=== PATIENT | male | born 2005 | race Hispanic/Latino ===

== ENCOUNTER 2024-06-12 15:28 | Emergency (ER) | payer OTHER ==
[~2024-06-12] VITALS: Ht 177.8 cm; Wt 80.7 kg
[2024-06-12 15:43] VITALS: BP 145/91; PULSE 71; RESP 20; TEMP 98.6
--- NOTE | 2024-06-12 15:45 | ERN ---
General Chief Complaint: Body Fluid Exposure Stated Complaint: BLOOD IN EYE (OTHER PERSONS) Time Seen by MD: 15:40 Time Seen by Midlevel: 15:40 Source: patient History of Present Illness Initial Comments Patient is a 18-year-old male with no significant past medical history presenting to the emergency department after he had a blood exposure from an IV to his right eye. This occurred at approximately 2:20 p.m. today. The patient does admit to wearing contact lenses and was wearing them at the time of the exposure. He did not remove his contact lenses after the exposure. He does report washing his eye for approximately 5-6 minutes. Patient was now presenting to the ER for further evaluation. Patient has no complaints at this time ROS Dictation CONSTITUTIONAL: Negative except for HPI HEAD/FACE: Negative except for HPI EENT: Negative except for HPI RESPIRATORY: Negative except for HPI GASTROINTESTINAL/ABDOMINAL: Negative except for HPI GENITOURINARY: Negative except for HPI MUSCULOSKELETAL: Negative except for HPI INTEGUMENTARY: Negative except for HPI NEUROLOGICAL/PSYCH: Negative except for HPI HEMATOLOGIC/LYMPHATIC: Negative except for HPI All Systems Negative, Except as noted above. 13 point review of systems assessed and all negative except for above. Physical Exam Physical Exam Dictation Vital Signs reviewed General Appearance: Alert, oriented x 3, no acute distress, well developed, nourished. Head and Face: non-traumatic. Eyes: PERRL, pink conjunctivas, eyelid no trauma, anterior chamber with arcus senilis. Ears: Pinnas intact and no signs of trauma or erythema ear canals clear and no discharge TM no erythema Nose: No discharge, no bleeding. Oropharynx: Mouth normal, tongue pink, pharynx clear,no erythema, tonsils no exudates, no abscesses noted, mucous membrane moist Neck: Supple, non-tender, no thyromegaly, no masses, no JVD, no bruits Breast:Deferred Chest:No tenderness, no crepitus, no paradoxical movement, no retractions Lungs:Clear, well-ventilated, symmetric, no rales, no wheezing, no rhonchi, no stridor, good breath sounds bilaterally Heart: Regular rate, regular rhythm, no murmur, no gallops Vascular: no peripheral edema, Abdomen: Soft, positive bowel sounds, nondistended, no guarding, nontender, no rebound, no masses no hepatomegaly, no splenomegaly, no Nguyen's sign, no hernias. Rectal: Deferred Genital: Deferred Neurological: Normal speech, motor function intact, sensory function intact Musculoskeletal: Neck nontender, full range of motion, back nontender, full range of motion, Extremities: nontender, full range of motion Skin: Color pink, dry, no turgor, no rash, no lacerations, no abrasions, no contusions. Lymphatic: Deferred MDM MDM: Patient is a 18-year-old male with no significant past medical history presenting to the emergency department after he had a blood exposure from an IV to his right eye. This occurred at approximately 2:20 p.m. today. The patient does admit to wearing contact lenses and was wearing them at the time of the exposure. He did not remove his contact lenses after the exposure. He does report washing his eye for approximately 5-6 minutes. Patient was now presenting to the ER for further evaluation. Patient has no complaints at this time. On physical examination the patient is in no acute distress. His ENT examination is unremarkable. His eye examination is unremarkable. The patient will be sent upstairs for further testing. Patient was advised to remove and toss his contact lenses at this time. Differential diagnosis: Exposure to body fluids, conjunctivitis, I evaluation, general wellness examination There are no social concerns with this patient. Prescription drug management Prescriptions will include: None Medical management and examination interpretation discussions were had by me with other qualified healthcare professionals as indicated for the patient's care. DX & DISP Disposition: Discharge Departure Impression: Primary Impression: Employee exposure to body fluids Condition: Stable Referrals: SELF,REFERRAL (PCP) Time of Disposition: 15:45 I have reviewed the case, and I agree with, Diagnosis and Plan I performed the substantive portion of the visit. I have reviewed and personally made and approve the management plan that is documented in the note by myself or the EARLINE. I acknowledge for responsibility for the patient's management plan. YARELIS MALLOY Jun 12, 2024 15:45
[2024-06-12 16:45] LABS: HIV 1&2 ANTIBODY Non-Reactive (Negative)
[2024-06-12 16:46] LABS: HIV-1 p24 Antigen Non-Reactive (Negative)
[2024-06-13 04:50] LABS: HEPATITIS B CORE AB TOTAL Non-Reactive (Nonreactive); HEPATITIS B SURFACE ANTIBODY Negative (Reactive); HEPATITIS C ANTIBODY Non-Reactive (Nonreactive)
== END 2024-06-12 17:47 | disposition left against medical advice (07) ==
LOC: EDH 15:28
DX: Z77.21 Contact with and (suspected) exposure to potentially hazardous body fluids (principal)
CPT/HCPCS: 36415; 86701; 86704; 86706; 86803; 87390; 99283

== ENCOUNTER 2024-09-27 17:00 | Emergency (ER) | payer OTHER ==
[~2024-09-27] VITALS: Ht 177.8 cm; Wt 77.1 kg
--- NOTE | 2024-09-27 17:12 | ERN ---
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 No other injuries reported. Allergies: Coded Allergies: No Known Drug Allergies (Unverified Allergy, Unknown, 06/12/24) Past Medical History Past Medical History: No Pertinent History Surgical History: None RN Note Reviewed/Agreed w/PFSH: Yes Review of System Dictation Constitutional: Negative for fever,chills, and weight loss Eyes: Negative for injury, pain,redness, and discharge ENT: Negative for injury,pain or swelling Cardiovascular: Negative for chest pain, palpitations, and edema Respiratory: Negative for shortness of breath, cough, and wheezing, Abdomen/GI: Negative for abdominal pain, nausea, vomiting, diarrhea, and constipation Back: Negative for injury and pain : Negative for injury, bleeding and discharge MS/Extremity: Positive for left foot injury Skin: Negative for rash, and discoloration Neuro: Negative for headache, weakness, numbness, tingling, and seizure Psych: Negative for suicide ideation, homicidal ideation, and hallucinations Initial Vital Sign VS Vital Signs Date Time Temp Pulse Resp B/P (MAP) Pulse Ox O2 Delivery O2 Flow Rate FiO2 09/27/24 17:01 97.5 79 18 141/76 99 Room Air 0 09/27/24 17:06 21 Physical Exam Dictation Vital Signs reviewed General Appearance: Alert, oriented x 3, no acute distress, well developed, nourished. Head and Face: non-traumatic. Eyes: PERRL, pink conjunctivas, eyelid no trauma, anterior chamber with arcus senilis. Ears: Pinnas intact and no signs of trauma or erythema ear canals clear and no discharge TM no erythema Nose: No discharge, no bleeding. Oropharynx: Mouth normal, tongue pink. pharynx clear,no erythema, tonsils no exudates, no abscesses noted, mucous membrane moist Neck: Supple, non-tender, no thyromegaly, no masses, no JVD, no bruits Breast:Deferred Chest:No tenderness, no crepitus, no paradoxical movement, no retractions Lungs:Clear, well-ventilated, symmetric, no rales, no wheezing, no rhonchi, no stridor, good breath sounds bilaterally Heart: Regular rate, regular rhythm, no murmur, no gallops Vascular: no peripheral edema, dorsalis pedis pulses 3+ bilaterally Abdomen: Soft, positive bowel sounds, nondistended, no guarding, nontender, no rebound, no masses no hepatomegaly, no splenomegaly, no Nguyen's sign, no hernias. Rectal: Deferred Genital: Deferred Neurological: Normal speech, motor function intact, sensory function intact Musculoskeletal: Neck nontender, full range of motion, back nontender, full range of motion, Extremities: nontender, full range of motion , tenderness to left dorsal foot, full range of motion to toes, cap refill less than 2 seconds, Skin: Color pink, dry, no turgor, no rash, no lacerations, no abrasions, no contusions. Lymphatic: Deferred Results (Laboratory/Radiology) Laboratory/Radiology REASON: pain, injury ORDERING PHYSICIAN: ALEJANDRA AHUJA PROCEDURE: FT 3VW LT - FOOT COMP 3+VWS LT FOOT COMP 3+VWS LT HISTORY: Pain and injury COMPARISON: None TECHNIQUE: 3 images of the left lower obtained. FINDINGS: There is no acute displaced fracture or dislocation. IMPRESSION: 1. Findings as described above. Labs Reviewed?: Yes ED Course ED Course Orders Procedure Category Date Status Time Foot Comp 3+Vws Lt RAD 09/27/24 Resulted 17:10 Ketorolac 60mg/2ml PHA 09/27/24 Complete (Toradol 60mg/2ml) 17:30 Current Medications Medications (Trade) Dose Ordered Sig/Ricky Route PRN Reason Start Time Stop Time Status Last Admin Dose Admin Ketorolac Tromethamine (toRADol 60MG/ 2ML) 60 mg ONCE ONCE IM 09/27/24 17:30 09/27/24 17:31 DC 09/27/24 17:34 Vital Signs Date Time Temp Pulse Resp B/P (MAP) Pulse Ox O2 Delivery O2 Flow Rate FiO2 09/27/24 17:06 97.9 79 18 141/78 99 Room Air* 0 21 09/27/24 17:01 97.5 79 18 141/76 99 Room Air 0 Medical Decision Making MDM The patient is a 18-year-old male with no past medical history who presents to the emergency department with complaints of 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 No other injuries reported. X-ray showed no acute fractures or dislocations. Patient neurovascularly intact. Nontoxic appearance. In no acute distress. Differential diagnosis: Foot fracture, foot contusion, foot sprain Need for hospitalization: Patient does not meet criteria for hospitalization. There are no social concerns with this patient. DX & DISP Disposition: Discharge Departure Impression: Primary Impression: Contusion of left foot Condition: Stable Additional Instructions: Your x-ray showed no acute fractures or dislocations. You may take [id number] Tylenol or ibuprofen as needed for pain. Referrals: SELF,REFERRAL (PCP) Time of Disposition: 19:20 I have reviewed the case, and I agree with, Diagnosis and Plan ALEJANDRA AHUJA September 27, 2024 17:12
[2024-09-27] MEDS: ketOROlac 60 MG VIAL (30MG/ML) IM ONE (17:34)
--- NOTE | 2024-09-27 19:17 | HMCIMG ---
FOOT COMP 3+VWS LT HISTORY: Pain and injury COMPARISON: None TECHNIQUE: 3 images of the left lower obtained. FINDINGS: There is no acute displaced fracture or dislocation. IMPRESSION: 1. Findings as described above.
[2024-09-27 19:40] VITALS: BP 138/72; PULSE 72; RESP 18; TEMP 97.9; O2SAT 99
== END 2024-09-27 19:41 | disposition home or self-care (01) ==
LOC: EDH 17:00
DX: S90.32XA Contusion of left foot, initial encounter (principal); W20.8XXA Other cause of strike by thrown, projected or falling object, initial encounter; Y93.89 Activity, other specified; Y92.89 Other specified places as the place of occurrence of the external cause; Y99.8 Other external cause status
CPT/HCPCS: 99283; 73630; 96372; J1885